=== PATIENT | male | born 2000 | race Hispanic/Latino ===

== ENCOUNTER 2021-09-17 19:42 | Emergency (ER) | payer BC ==
[~2021-09-17] VITALS: Ht 172.7 cm; Wt 60.8 kg
[2021-09-18] MEDS ORDERED: AMOX500C PO (00:47)
[2021-09-18] MEDS ORDERED: AMOXICILLIN 500 MG CAP PO ONE (00:50)
[2021-09-18 00:58] VITALS: BP 141/87
== END 2021-09-18 01:02 | disposition home or self-care (01) ==
LOC: M ED 19:42
DX: S02.401A Maxillary fracture, unspecified side, initial encounter for closed fracture (principal); W50.0XXA Accidental hit or strike by another person, initial encounter; Y92.9 Unspecified place or not applicable; Y93.67 Activity, basketball; Y99.9 Unspecified external cause status